=== PATIENT | male | born 1980 | race Caucasian/White ===

== ENCOUNTER 2017-06-10 20:34 | Emergency (ER) | payer MEDICAID ==
[2017-06-10 20:45] VITALS: BP 130/81; PULSE 67; RESP 18; TEMP 97.5; O2SAT 95
--- NOTE | 2017-06-10 21:22 | C.PDOC ---
History Of Present Illness 36 y/o male presents to ED with complaints of intermittent sharp "aching" mid back pain radiating to upper shoulders for 2 weeks. Patient reports pain is worse with movements or taking deep breaths, admits to increased smoking and heavy weightlifting because he is trying to lose weight. Patient denies chest pain, sob, weakness. numbness, dysuria, hematuria or any other complaints at this time. Time Seen by Provider: 06/10/17 20:52 Chief Complaint (Nursing): Back Pain History Per: Patient History/Exam Limitations: no limitations Onset/Duration Of Symptoms: Days Current Symptoms Are (Timing): Still Present Past Medical History Reviewed: Historical Data, Nursing Documentation, Vital Signs Vital Signs: Last Vital Signs Temp 97.5 F L 06/10/17 20:42 Pulse 67 06/10/17 20:42 Resp 18 06/10/17 20:42 BP 130/81 06/10/17 20:42 Pulse Ox 95 06/10/17 21:41 - Medical History PMH: No Chronic Diseases Surgical History: No Surg Hx Family History: States: No Known Family Hx - Social History Hx Tobacco Use: Yes Hx Alcohol Use: No Hx Substance Use: Yes (marijuana) - Immunization History Hx Tetanus Toxoid Vaccination: No Hx Influenza Vaccination: No Hx Pneumococcal Vaccination: No Review Of Systems Genitourinary: Negative for: Dysuria, Hematuria Musculoskeletal: Positive for: Shoulder Pain, Back Pain. Negative for: Neck Pain Skin: Negative for: Rash Neurological: Negative for: Weakness, Numbness Physical Exam - Physical Exam Appears: Non-toxic, No Acute Distress Skin: Warm, Dry, No Rash Head: Atraumatic, Normacephalic Eye(s): bilateral: Normal Inspection Oral Mucosa: Moist Neck: Normal ROM, Supple, Other (Trapezius muscle tenderness) Chest: Symmetrical, No Tenderness Cardiovascular: Rhythm Regular, No Murmur Respiratory: Normal Breath Sounds, No Rales, No Rhonchi, No Stridor, No Wheezing Back: No CVA Tenderness, No Vertebral Tenderness, Other (Mild tenderness to parathoracic region. No swelling. No bulging. No rash. ) Extremity: Normal ROM, Capillary Refill (<2 seconds) Neurological/Psych: Oriented x3, Normal Motor, Normal Sensation ED Course And Treatment O2 Sat by Pulse Oximetry: 95 (RA) Pulse Ox Interpretation: Normal Medical Decision Making Medical Decision Making: Patient with upper back pain Plan: Thoracic back xray, patient declined any medicine Progress: xray viewed by me showing normal spine curvature, no compression fracture, no degenerative changes, normal cardiac silhouette. Re-assessment: Patient seated comfortable in no acute distress. He has no Disposition Counseled Patient/Family Regarding: Need For Followup, Rx Given - Disposition Referrals: Shelton Bajwa, EDUARDO, DIE OPERATOR [Advanced Practice Nurse] - Disposition: HOME/ ROUTINE Disposition Time: 21:36 Condition: GOOD Additional Instructions: Take Ibuprofen every 6-8 hours as needed for pain Take Flexeril for muscle pain as needed every 8 hours, caution can cause drowsiness Follow up with your primary medical doctor or clinic in 2-5 days for further evaluation. Prescriptions: Cyclobenzaprine [Cyclobenzaprine HCl] 10 mg PO TID #21 tab Ibuprofen [Motrin] 600 mg PO Q8 #30 tab Instructions: Thoracic Back Strain (ED), Upper Back Exercises (GEN) Forms: [employer] (I[place]ic) - POA Present On Arrival: None - Clinical Impression Clinical Impression: Thoracic back pain - PA / TRAFFIC SIGNAL MECHANIC / Resident Statement MD/DO has reviewed & agrees with the documentation as recorded. - Scribe Statement The provider has reviewed the documentation as recorded by the Sai Fuentes All medical record entries made by the Sai were at my direction and personally dictated by me. I have reviewed the chart and agree that the record accurately reflects my personal performance of the history, physical exam, medical decision making, and the department course for this patient. I have also personally directed, reviewed, and agree with the discharge instructions and disposition.
--- NOTE | 2017-06-11 09:26 | RAD ---
HISTORY: pain upper back COMPARISON: No prior. FINDINGS: BONES: Alignment maintained. No fracture. Thoraco lumbar level spurring DISC SPACES: Minimal inferior thoracic level disc space narrowing SOFT TISSUES: Normal. OTHER FINDINGS: None. IMPRESSION: No fracture or subluxation appreciated. 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
== END 2017-06-10 22:00 | disposition home or self-care (01) ==
LOC: C.ER 20:34
DX: M54.6 Pain in thoracic spine (principal)